=== PATIENT | female | born 1980 | race Caucasian/White ===

== ENCOUNTER 2018-05-16 07:30 | Inpatient (IN) | payer BC ==
[2018-05-17] MEDS ORDERED: CEFAZOLIN/SWI 2gm 2 GM/20 ML SYR IV SCH (10:00)
[2018-05-17 10:30] LABS: RPR Titer ND
[2018-05-17 10:36] LABS: Urine Appearance CLEAR; Urine Bilirubin NEGATIVE (NEG); Urine Blood NEGATIVE (NEG); Urine Color YELLOW; Urine Glucose NEGATIVE (NEG); Urine Protein NEGATIVE (NEG); Urine Urobilinogen 0.2 mg/dL (0.2-1.0)
[2018-05-17 10:47] LABS: Urine Bacteria <20 /HPF (<20); Urine RBC NONE SEEN /HPF (NONE SEEN)
[2018-05-17 10:48] LABS: Urine Culture Reflex Order NOT NEEDED
[2018-05-17 10:57] LABS: Absolute Lymphocytes (CBC) 1.7 K/uL (0.7-4.9); Absolute Monocytes 0.6 K/uL (0.1-1.3); Absolute Neutrophil 6.1 K/uL (1.8-8.0); Basophils % 0.3 % (0-1.3); Eosinophils % 1.1 % (0-4.4); Hematocrit 37.9 % (36.0-45.0); Lymphocytes % 19.8 % (15.3-44.8); MCH 31.1 pg (27.0-35.0); Monocytes % 6.7 % (3.3-12.3); RBC Red Blood Cell Count 4.17 M/uL (3.86-4.86)
--- NOTE | 2018-05-17 14:42 | PREOPHP ---
Date of Admission: 05/18/2018 History Of Present Illness: Ms. Gallo is a 37-year-old female, 2, para 1-0- 0-1, who is now at 39+ weeks' gestation. She has been followed by me during this with hist ory of advanced maternal age, prior section and mild anemia. She was considering a trial of with a trial of labor, but despite having some contractions, cervix is extremely unfavorable be ing firmly closed. She has elected to proceed with a repeat section. Past Medical History: Please see record. Family History: Please see record. Review of Systems: She reports no significant cough, cold, fever, chills. No recent nausea or vomiting. She denies any breast lumps. She denies any bowel or bladder issues. Infant has been active. She denies vaginal bleeding. Physical Examination: General: Reveals female, in no apparent distress. Neck: Supple without adenopathy or thyromegaly. Lungs: Clear. Cardiac: Regular rate and rhythm without murmurs. Breasts: Not examined. Abdomen: Estimated weight of 8+ pounds. Pelvic: Cervix is closed, firm, vertex, and -2 station. Extremities: Trace lower extremity edema. Impression: 39+ week , advanced maternal age, prior section, suspected cephalopelv ic disproportion. Plan: The patient will undergo repeat section. Risks and benefits are discussed. She has signed operative permit in my presence. MALIK/LEWIS Voice ID: [id number]
[2018-05-17 22:59] LABS: RPR (Rapid Plasma Reagin) NON-REACT (NON-REACT)
[2018-05-18] MEDS ORDERED: Ringers Lactate 1,000 ML IV PRN (05:55)
[2018-05-18] MEDS ORDERED: NA CIT/CITRIC AC 30 ML ORAL UDC PO ONE (05:56)
[2018-05-18] MEDS ORDERED: FAMOTIDINE 20 MG/2 ML VIAL IV ONE (05:56)
[2018-05-18] MEDS ORDERED: METOCLOPRAMIDE 10 MG/2mL INJ IV SCH (06:00)
[2018-05-18] MEDS ORDERED: Ringers Lactate 1,000 ML IV SCH (06:00)
[2018-05-18 06:04] VITALS: BMI 39.1
[2018-05-18] MEDS ORDERED: CEFAZOLIN/SWI 2gm 2 GM/20 ML SYR IV SCH (06:27)
[2018-05-18] MEDS ORDERED: BUTORPHANOL 1 MG/ML INJ IV ONE (07:02)
[2018-05-18] MEDS ORDERED: METHYLERGONOVINE 0.2MG/ML AMP IM ONE (07:03)
[2018-05-18] MEDS ORDERED: CARBOPROST TROME 250 MCG/ML IM ONE (07:03)
[2018-05-18] MEDS ORDERED: OXYTOCIN 10 UNIT/ML ML IV ONE ×2 (07:26→08:31)
[2018-05-18] MEDS ORDERED: EPHEDRINE SULF 50 MG/ML VIAL ONE (07:26)
[2018-05-18] MEDS ORDERED: MORPHINE SULFATE/PF 1 MG/ML (10 ML AMP) ONE (07:26)
[2018-05-18] MEDS ORDERED: BUPIVACAINE 0.75% (PF) 2 ML SP ONE (07:29)
[2018-05-18] MEDS ORDERED: LIDOCAINE 1% MPF 5 ML VIAL ONE (07:35)
[2018-05-18] MEDS ORDERED: METOCLOPRAMIDE 10 MG/2mL INJ IV ONE (08:00)
[2018-05-18] MEDS ORDERED: MIDAZOLAM HCL 2 MG/2 ML INJ ONE (08:13)
[2018-05-18] MEDS ORDERED: ONDANSETRON 4 MG (ODT) TAB PO PRN (08:36)
[2018-05-18] MEDS ORDERED: METHYLERGONOVINE 0.2 MG TAB PO PRN (08:36)
[2018-05-18] MEDS ORDERED: METHYLERGONOVINE 0.2MG/ML AMP IM PRN (08:36)
[2018-05-18] MEDS ORDERED: KETOROLAC 30 MG/ML INJ IV PRN (08:37)
[2018-05-18] MEDS ORDERED: CARBOPROST TROME 250 MCG/ML IM PRN (08:37)
[2018-05-18] MEDS ORDERED: Oxycodone HCl/Acetaminophen 1 TAB TAB PO PRN (08:37)
--- NOTE | 2018-05-18 08:41 | P.BOP ---
Preoperative diagnosis: 39+ wk , prior Postoperative diagnosis: same, delivery viable male Primary procedure: Property Analyst: Kamron Wilson Estimated blood loss: 800ml Specimen: placenta Anesthesia: Spinal Complications: None Drain(s): Urinary catheter Transferred to: Other (277) Condition: Good
[2018-05-18] MEDS ORDERED: Ringers Lactate 1,000 ML IV ONE (08:56)
[2018-05-18] MEDS ORDERED: PROMETHAZINE 25 MG/ML VIAL IV PRN (12:42)
[2018-05-18] MEDS: OXYTOCIN/LR 20 UNIT/1,000 ML BAG IV SCH ×2 (16:51→23:25)
[2018-05-18] MEDS: DIPHENHYDRAMINE 50 MG/ML VIAL IV PRN (16:51)
[2018-05-19] MEDS: DIPHENHYDRAMINE 50 MG/ML VIAL IV PRN (03:35)
[2018-05-19 06:22] LABS: Absolute Lymphocytes (CBC) 1.3 K/uL (0.7-4.9); Absolute Monocytes 0.6 K/uL (0.1-1.3); Absolute Neutrophil 6.3 K/uL (1.8-8.0); Basophils % 0.3 % (0-1.3); Eosinophils % 1.6 % (0-4.4); Hematocrit 28.7 % (36.0-45.0); Lymphocytes % 15.5 % (15.3-44.8); MCH 32.1 pg (27.0-35.0); MCV 90.2 fL (80-100); MPV 10.2 fL (7.6-11.3); Monocytes % 6.7 % (3.3-12.3); RBC Red Blood Cell Count 3.19 M/uL (3.86-4.86)
[2018-05-19] MEDS: Oxycodone HCl/Acetaminophen 1 TAB TAB PO PRN ×5 (07:07→23:26)
--- NOTE | 2018-05-19 09:17 | OP ---
Surgeon: Neal Smith MD Preoperative Diagnosis: A 39+ week , prior section, advanced maternal age, prodrom al labor. Procedure: Spinal block anesthesia, repeat section. Delivery of viable male infant. Postoperative Diagnoses: A 39+ week , prior section, advanced maternal age, prodro mal labor. Description Of Procedure: After patient received 2 g of Ancef for antibiotic prophylaxis a satisfact ory level of spinal block anesthesia was obtained. She was prepped and draped in the usual fashion f or abdominal surgery with a Finnegan catheter in place. A Pfannenstiel skin incision was made carried d own to the fascia. The fascia incised with a combination of sharp and blunt dissection. This was se parated from the underlying rectus muscles. Some filmy type of adhesions from the abdominal wall to the uterus were lysed. The vesicouterine peritoneum incised. Bladder flap developed. A low-transve rse uterine incision made. An 8-pound 5-ounce male infant, 9 and 9 was delivered. The cord mi lked toward the , clamped, cut, and the placed in a warmer. Cord blood was obtained. T he placenta was manually removed. Uterus was then exteriorized. The cervix was dilated with a ring clamp from above, which was passed from the operative field. The uterine incision was closed in 2 la yers, running nonlocking suture, utilizing 0 Vicryl suture. Second layer used to imbricate the first . The bladder flap was reapproximated with a running suture 3-0 Vicryl. The uterus was returned to the peritoneal cavity, which was cleaned of amniotic fluid, debris, and blood clot. The rectus muscl es were approximated in the midline with simple sutures of 0 Vicryl. The fascia was closed with runn ing sutures of #1 Vicryl from either margin to the middle in nonlocking fashion. Subcutaneous tissue closed with simple sutures of 3-0 Vicryl, subdermal suture of 3-0 Vicryl, and a subcuticular suture of 4-0 Monocryl. The patient was taken to recovery room in satisfactory condition with Finnegan cathete r in place. Sponge and needle counts correct x2. Cook Sauce Surgeon: Dr. Wilson. Anesthesia: Halima Zayas CRNA and Weston Ulrich M.D. Estimated Total Blood Loss: Less than 800 cc. MPG/MODL Voice ID: [id number] Report ID: [id number]
--- NOTE | 2018-05-19 10:16 | PN ---
Postoperatively, the patient is doing well. H and H showed a fairly significant drop, but lochia is normal. The patient's vital signs are all stable. She is doing quite well. We will discontinue her Finnegan and IV, begin ambulation and p.o. intake. Full postoperative talk given. No post spinal bloc k problems. If all goes well, she will go home tomorrow. Rh positive, immune to Rubella. She has h ad her Tdap and flu shots. CATHERINE/LEWIS Voice ID: [id number] Report ID: [id number]
[2018-05-20] MEDS: IBUPROFEN 400 MG TAB PO PRN ×2 (01:30→09:10)
[2018-05-20] MEDS ORDERED: IBUPROFEN 200 MG TAB PO ONE (01:39)
[2018-05-20] MEDS: Oxycodone HCl/Acetaminophen 1 TAB TAB PO PRN (04:47)
[2018-05-20 07:29] VITALS: BP 139/79; TEMP 97
--- NOTE | 2018-05-21 02:50 | DS ---
Date of Discharge: 05/20/2018 A 37-year-old female for repeat section. Postoperatively, the patient has done quite well. She is afebrile. No post epidural problems. She has had her Tdap and flu shots. She has had no pr oblems with her incision. She is ambulating, voiding. Lochia is normal. She will be dismissed to isabel egan to Dr. Smith's office on Tuesday. She will be seen later that week. Over the weekend, if s he has any fevers, severe pain, heavy bleeding, or any other type of problem, she is to call back to Labor and Delivery. Dismissed with tramadol for analgesia, although she may elect to take Motrin ins tead or alternate. Final Diagnoses: Term intrauterine , repeat section, spinal block anesthesia. CATHERINE/LEWIS Voice ID: [id number] Report ID: [id number]
== END 2018-05-20 09:54 | disposition home or self-care (01) | DRG 788 ==
LOC: 2ND-WC 05-18 05:27
PROVIDERS: ADMIT Specialist; ATTEND Specialist
PROC: 10D00Z1 Extraction of Products of Conception, Low, Open Approach (ICD-10-PCS; principal; 2018-05-18 07:30)
DX: O34.211 Maternal care for low transverse scar from previous cesarean delivery (principal); Z3A.39 39 weeks gestation of pregnancy; Z37.0 Single live birth
CPT/HCPCS: 36415; 81001; 85025; 86592; 86706; 86850; 86900; 86901; 88307; J0690; J2210; J2250; J2590; J2765